=== PATIENT | male | born 1970 | race Caucasian/White ===

== ENCOUNTER 2017-07-08 08:22 | Emergency (ER) | payer OTHER ==
[2017-07-08 08:31] VITALS: BP 153/90; PULSE 88; TEMP 98.6; BMI 30.1
[2017-07-08] MEDS ORDERED: KETOROLAC TROMETHAMINE 60 MG/2 ML VIAL IM ONE (08:52)
[2017-07-08] MEDS ORDERED: CYCLOBENZAPRINE HCL 10 MG TABLET (FP) PO ONE (08:52)
--- NOTE | 2017-07-08 08:52 | PDOC ---
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 Eighth pain is primarily under his left axilla and has radiating numbness to his finger. pain is also primarily at his left upper trapezius musculature. Denies shortness of breath, chest pain or palpitations, no breathing problems, has never had any cardiac issues and is followed regularly due to his hypertension, hypercholesterolemia, and diabetes. had a recent 40 pound weight loss but no Hx of cardiac disease. 07/08/17 09:00 Occurred: reports: yesterday Severity: reports: mild, moderate Pain Location: reports: upper extremity (left shoulder and neck) Modifying Factors: improves with: None Associated Symptoms (Fall): denies symptoms Past History - Travel Traveled outside of the country in the last 30 days: Yes Close contact w/someone who was outside of country & ill: Yes - Past Medical History Allergies/Adverse Reactions: Allergies Allergy/AdvReac Type Severity Reaction Status Date / Time No Known Allergies Allergy Verified 07/08/17 08:36 Home Medications: Ambulatory Orders Amlodipine Besylate [Norvasc -] 5 mg PO DAILY 07/23/15 Atorvastatin Ca [Lipitor -] 5 mg PO HS 07/23/15 Metformin HCl [Glucophage] 1,000 mg PO BID 07/23/15 Sitagliptin Phosphate [Januvia] 25 mg PO DAILY 07/23/15 Cyclobenzaprine HCl [Flexeril 10 mg] 10 mg PO BID PRN #14 tablet 07/08/17 Diabetes: Yes - Suicide/Smoking/Psychosocial Hx Smoking History: Never smoked Have you smoked in the past 12 months: No Number of Cigarettes Smoked Daily: 0 Information on smoking cessation initiated: No Hx Alcohol Use: No Drug/Substance Use Hx: No Substance Use Type: None Trauma Specific PMHX - Complaint Specific PMHX Back Injury: No Neck Injury: No Review of Systems - Review of Systems Able to Perform ROS?: Yes Is the patient limited Yakut proficient: Yes Constitutional: Yes: Symptoms Reported, See HPI, Malaise HEENTM: No: Symptoms Reported Respiratory: Yes: See HPI. No: Symptoms reported Musculoskeletal: Yes: Symptoms Reported, See HPI, Back Pain, Joint Pain, Neck Pain Integumentary: Yes: See HPI. No: Symptoms Reported, Bruising, Rash Neurological: Yes: Symptoms reported, See HPI, Numbness (intermittent numbness to his left hand). No: Headache All Other Systems: Reviewed and Negative *Physical Exam - Vital Signs Last Vital Signs Temp Pulse Resp BP Pulse Ox 98.6 F 88 18 153/90 100 07/08/17 08:27 07/08/17 08:27 07/08/17 08:27 07/08/17 08:27 07/08/17 08:27 - Physical Exam General Appearance: Yes: Nourished, Appropriately Dressed HEENT: positive: KIRK, Normal ENT Inspection, Normal Voice, TMs Normal, Pharynx Normal Neck: positive: Tender. negative: Supple (patient has limited range of motion secondary to tension to the left paravertebral spinous musculature and upper trapezius of his left neck. With pressure pain is reproduced with some numbness that extends down his left hand) Respiratory/Chest: positive: Lungs Clear, Normal Breath Sounds Cardiovascular: positive: Regular Rhythm, Regular Rate Gastrointestinal/Abdominal: positive: Normal Bowel Sounds, Soft. negative: Tender Musculoskeletal: positive: Normal Inspection. negative: CVA Tenderness Extremity: positive: Normal Capillary Refill, Normal Inspection, Normal Range of Motion (supinate, and pronate without tenderness reproduced and upper arm from wrist and hand, strong flexion and extension and strength is good with resistance. Patient is able to abduct past 90 forward flex past 90 without reproduce tenderness to shoulder and against resistance. No winging. Has no clavicle or scapular tenderness. States pain is primarily under his left arm upper arm and axilla and in his left shoulder musculature) Integumentary: positive: Normal Color, Dry, Warm Neurologic: positive: french translator II-XII NML intact, Fully Oriented, Alert, Normal Mood/ Affect, Normal Response, Motor Strength 5/5 Heart Score/ECG Review - Electrocardiogram EKG: Normal - ECG Intrepretation Rhythm: Regular Rhythm - ST and T Non Specific ST-T Wave changes: No - ECG Impressions Normal ECG: Yes Progress Note - Progress Note Progress Note: Left shoulder strain, will treat with NSAIDs and cyclobenzaprine *DC/Admit/Observation/Transfer Diagnosis at time of Disposition: Cervical strain, acute Qualifiers: Encounter type: initial encounter Qualified Code(s): S16.1XXA - Strain of muscle, fascia and tendon at neck level, initial encounter; S16.1XXA - Strain of muscle, fascia and tendon at neck level, initial encounter Strain of right shoulder Qualifiers: Encounter type: initial encounter Qualified Code(s): S46.911A - Strain of unspecified muscle, fascia and tendon at shoulder and upper arm level, right arm , initial encounter; S46.911A - Strain of unspecified muscle, fascia and tendon at shoulder and upper arm level, right arm, initial encounter - Discharge Dispostion Disposition: HOME Condition at time of disposition: Stable Admit: No - Patient Instructions Printed Discharge Instructions: DI for Shoulder Sprain Additional Instructions: Rest, no heavy lifting or exercise until pain is resolved Hot soaks to neck and low back as often as possible/hot showers or Jacuzzis No massage or therapy until spasm is gone Continue ibuprofen 2-200 mg tablets every 6 hours for the next 3 days then as needed for pain and swelling Cyclobenzaprine 1-10mg every 8 hours as needed for spasm If not significant improvement within 24 hours with medication and rest regime, followup with private physician for change in medications and /or therapy. Follow-up with orthopedist this week further evaluation and necessary testing - Post Discharge Activity Forms/Work/School Notes: Back to Work
[2017-07-08] MEDS ORDERED: KETOROLAC TROMETHAMINE 60 MG/2 ML VIAL ONE (08:57)
[2017-07-08] MEDS ORDERED: CYCLOBENZAPRINE HCL 10 MG TABLET (FP) ONE (08:58)
== END 2017-07-08 09:25 | disposition home or self-care (01) ==
LOC: JERFT 08:22
PROC: 3E0133Z Introduction of Anti-inflammatory into Subcutaneous Tissue, Percutaneous Approach (ICD-10-PCS; principal; 2017-07-08)
DX: S16.1XXA Strain of muscle, fascia and tendon at neck level, initial encounter (principal); S46.912A Strain of unspecified muscle, fascia and tendon at shoulder and upper arm level, left arm, initial encounter; X50.0XXA Overexertion from strenuous movement or load, initial encounter; Y93.89 Activity, other specified; Y92.89 Other specified places as the place of occurrence of the external cause; Y99.0 Civilian activity done for income or pay; I10 Essential (primary) hypertension; E78.00 Pure hypercholesterolemia, unspecified; E11.9 Type 2 diabetes mellitus without complications; Z79.84 Long term (current) use of oral hypoglycemic drugs
CPT/HCPCS: 99281-25

== ENCOUNTER 2023-07-22 10:12 | Inpatient (IN) | payer BC, OTHER ==
[2023-07-22] MEDS ORDERED: ACETAMINOPHEN 1000 MG/100 ML BAG IVPB ONE (11:51)
[2023-07-22] MEDS ORDERED: SODIUM CHLORIDE 0.9% 500 ML INFUS.BAG IV ONE (11:51)
[2023-07-22] MEDS ORDERED: ONDANSETRON 4 MG/2 ML VIAL IVPUSH ONE (11:51)
[2023-07-22] MEDS ORDERED: ACETAMINOPHEN INJECTION 100 ML IVPB ONE (12:06)
[2023-07-22] MEDS ORDERED: ONDANSETRON 4 MG/2 ML VIAL ONE (12:06)
[2023-07-22 12:21] LABS: BASO % 0.3 % (0-2.0); EOS % 0.2 % (0-4.5); HEMATOCRIT 42.6 % (35.4-49); HEMOGLOBIN 14.4 GM/dL (11.7-16.9); LYMPH % 6.9 % (8-40); MCH 31.2 pg (25.7-33.7); MCHC 33.7 g/dl (32.0-35.9); MEAN CELL VOLUME 92.6 fl (80-96); MEAN PLT VOLUME 7.3 fl (7.5-11.1); MONO % 2.7 % (3.8-10.2); NEUT % 89.9 % (42.8-82.8); PLATELET COUNT 216 10^3/uL (134-434); RDW 13.8 % (11.9-15.9); WHITE BLOOD COUNT 12.3 K/mm3 (4.0-10.0)
[2023-07-22 12:28] LABS: INR 0.94 (0.83-1.09); PROTHROMBIN TIME (PATIENT) 10.9 SEC (9.7-13.0)
[2023-07-22 12:31] LABS: ACTIVATED PTT 30.3 SECONDS (25.2-36.5)
[2023-07-22 12:49] LABS: POTASSIUM 4.3 mmol/L (3.5-5.1)
[2023-07-22 12:52] LABS: BLOOD UREA NITROGEN 19.2 mg/dL (7-18); CALCIUM 9.2 mg/dL (8.5-10.1); MAGNESIUM 1.6 mg/dL (1.8-2.4)
[2023-07-22 12:57] LABS: BILIRUBIN,TOTAL 0.8 mg/dL (0.2-1); TOT PROT 7.4 g/dl (6.4-8.2)
[2023-07-22] MEDS ORDERED: PIPERACILLIN/TAZOB 4.5 GM 4.5 GM in DEXTROSE 5%-WATER 100 ML IVPB ONE (13:42)
[2023-07-22] MEDS ORDERED: MAGNESIUM 1GM/D5W - 1 GM/100 ML IVPB IVPB ONE (13:43)
[2023-07-22] MEDS ORDERED: PIPERACILLIN/TAZOB 4.5 GM 4.5 GM/100 ML BAG IVPB ONE (14:00)
[2023-07-22] MEDS ORDERED: ACETAMINOPHEN 325 MG TABLET (FP) PO PRN (14:17)
[2023-07-22] MEDS ORDERED: KETOROLAC TROMETHAMINE 15 MG/ML VIAL IVPUSH PRN (14:17)
[2023-07-22] MEDS: LACTATED RINGERS SOLUTION 1,000 ML IV SCH (14:47)
[2023-07-22] MEDS ORDERED: PIPERACILLIN/TAZOB 3.375 GM 3.375 GM in DEXTROSE 5%-WATER - 50 ML IVPB SCH (18:00)
[2023-07-22] MEDS ORDERED: ATORVASTATIN CA 10 MG TABLET (FP) PO SCH (22:00)
[2023-07-22] MEDS ORDERED: ATORVASTATIN CA 20 MG TABLET (FP) ONE (22:10)
[2023-07-22] MEDS ORDERED: PIPERACILLIN/TAZOB 3.375 GM 3.375 GM/50 ML BAG IVPB ONE (22:10)
[2023-07-22] MEDS: PIPERACILLIN/TAZOB 3.375 GM 3.375 GM in DEXTROSE 5%-WATER - 50 ML IVPB SCH (22:17)
[2023-07-23] MEDS ORDERED: PIPERACILLIN/TAZOB 3.375 GM 3.375 GM/50 ML BAG IVPB ONE ×2 (05:30→05:39)
[2023-07-23] MEDS: PIPERACILLIN/TAZOB 3.375 GM 3.375 GM in DEXTROSE 5%-WATER - 50 ML IVPB SCH ×2 (05:45→14:07)
[2023-07-23] MEDS ORDERED: amLODIPine BESYLATE 5 MG TABLET (FP) PO SCH (10:00)
[2023-07-23] MEDS ORDERED: ENOXAPARIN NA (PORCINE) 40 MG/0.4 ML DISP.SYRIN SQ SCH (10:00)
[2023-07-23 10:53] LABS: BASO % 0.5 % (0-2.0); EOS % 1.3 % (0-4.5); HEMATOCRIT 37.3 % (35.4-49); HEMOGLOBIN 13.4 GM/dL (11.7-16.9); LYMPH % 17.5 % (8-40); MCH 32.4 pg (25.7-33.7); MCHC 35.8 g/dl (32.0-35.9); MEAN CELL VOLUME 90.5 fl (80-96); MEAN PLT VOLUME 7.8 fl (7.5-11.1); MONO % 6.6 % (3.8-10.2); NEUT % 74.1 % (42.8-82.8); PLATELET COUNT 169 10^3/uL (134-434); RBC 4.12 M/mm3 (4.00-5.60); RDW 13.8 % (11.9-15.9); WHITE BLOOD COUNT 6.7 K/mm3 (4.0-10.0)
[2023-07-23 11:09] LABS: INR 1.03 (0.83-1.09); PROTHROMBIN TIME (PATIENT) 11.9 SEC (9.7-13.0)
[2023-07-23 11:11] LABS: ACTIVATED PTT 30.4 SECONDS (25.2-36.5)
[2023-07-23 11:18] LABS: POTASSIUM 4.1 mmol/L (3.5-5.1)
[2023-07-23 11:21] LABS: CALCIUM 8.8 mg/dL (8.5-10.1)
[2023-07-23 11:22] LABS: ALBUMIN 3.4 g/dl (3.4-5.0); BLOOD UREA NITROGEN 10.3 mg/dL (7-18); MAGNESIUM 1.6 mg/dL (1.8-2.4)
[2023-07-23 11:25] LABS: CREATININE 0.9 mg/dL (0.55-1.3); PHOSPHOROUS 2.9 mg/dL (2.5-4.9)
[2023-07-23 11:27] LABS: BILIRUBIN,TOTAL 0.8 mg/dL (0.2-1); TOT PROT 6.4 g/dl (6.4-8.2)
[2023-07-23] MEDS ORDERED: BUPIVACAINE HCL/PF 0.25% (2.5MG/ML) 10 ML VIAL ONE (12:16)
[2023-07-23] MEDS ORDERED: MAGNESIUM SULF 50% (8.12 MEQ/2 ML-1 GM VIAL) IVPB ONE (14:00)
[2023-07-23] MEDS ORDERED: ceFAZolin SODIUM 1 GM VIAL IVPB ONE (14:39)
[2023-07-23] MEDS ORDERED: BUPIVACAINE HCL/PF 0.25% (2.5MG/ML) 10 ML VIAL IJ ONE ×2 (14:40→15:20)
[2023-07-23] MEDS ORDERED: IOVERSOL 320 MG/ML ML IV ONE (14:40)
[2023-07-23] MEDS ORDERED: FENTANYL CITRATE/PF 50 MCG/ML VIAL ONE ×3 (14:42→17:25)
[2023-07-23] MEDS ORDERED: MIDAZOLAM HCL 2 MG/2 ML SINGLE DOSE VIAL ONE (14:43)
[2023-07-23] MEDS ORDERED: ROCURONIUM BROMIDE 50 MG/5 ML SYRINGE ONE (14:43)
[2023-07-23] MEDS ORDERED: PROPOFOL 20 ML ONE (14:43)
[2023-07-23] MEDS ORDERED: cefOXitin SODIUM 2 GM VIAL (RESTRICTED TO ID) IVPB ONE ×2 (15:03→15:05)
[2023-07-23] MEDS ORDERED: HYDROmorphone HCl 2 MG/ML VIAL ONE (15:07)
[2023-07-23] MEDS ORDERED: NEOSTIGMINE METHYLSULFATE 0.5 MG/1 ML - 10 ML MDV ONE (15:56)
[2023-07-23] MEDS ORDERED: KETOROLAC TROMETHAMINE 30 MG/1 ML VIAL ONE (15:56)
[2023-07-23] MEDS ORDERED: ONDANSETRON 4 MG/2 ML VIAL ONE (15:56)
[2023-07-23] MEDS ORDERED: GLYCOPYRROLATE 0.2 MG/1 ML VIAL ONE (15:56)
[2023-07-23] MEDS ORDERED: LABETALOL HCL 20 MG/4 ML VIAL ONE (15:56)
[2023-07-23] MEDS ORDERED: DEXAMETHASONE SOD PHOSPHATE 4 MG/1 ML VIAL ONE (15:56)
[2023-07-23] MEDS ORDERED: INSULIN SLIDING SCALE (NOVOLOG) 1 VIAL SQ SCH (16:30)
[2023-07-23] MEDS ORDERED: ONDANSETRON 4 MG/2 ML VIAL IVPUSH PRN ×2 (17:00→17:05)
[2023-07-23] MEDS ORDERED: ACETAMINOPHEN 1000 MG/100 ML BAG IVPB ONE ×2 (17:00→17:05)
[2023-07-23] MEDS ORDERED: LACTATED RINGERS SOLUTION 1,000 ML IV SCH (17:00)
[2023-07-23] MEDS ORDERED: LABETALOL HCL 5 MG/1 ML (100MG/20 ML VIAL) IVPUSH ONE ×2 (17:00→17:05)
[2023-07-23] MEDS ORDERED: ACETAMINOPHEN 325 MG TABLET (FP) PO PRN (17:05)
[2023-07-23] MEDS ORDERED: ACETAMINOPHEN INJECTION 100 ML IVPB ONE (17:16)
[2023-07-23] MEDS: LACTATED RINGERS SOLUTION 1,000 ML IV SCH ×2 (18:44→18:46)
[2023-07-23] MEDS: KETOROLAC TROMETHAMINE 15 MG/ML VIAL IVPUSH PRN (20:20)
[2023-07-23] MEDS: ATORVASTATIN CA 10 MG TABLET (FP) PO SCH (21:16)
[2023-07-24] MEDS: LACTATED RINGERS SOLUTION 1,000 ML IV SCH (01:43)
[2023-07-24] MEDS: KETOROLAC TROMETHAMINE 15 MG/ML VIAL IVPUSH PRN ×2 (02:30→10:03)
[2023-07-24] MEDS: INSULIN SLIDING SCALE (NOVOLOG) 1 VIAL SQ SCH ×3 (06:50→17:03)
[2023-07-24 07:42] LABS: BASO % 0.1 % (0-2.0); EOS % 0.2 % (0-4.5); HEMATOCRIT 33.7 % (35.4-49); HEMOGLOBIN 11.3 GM/dL (11.7-16.9); LYMPH % 13.7 % (8-40); MCH 31.2 pg (25.7-33.7); MCHC 33.6 g/dl (32.0-35.9); MEAN CELL VOLUME 92.7 fl (80-96); MEAN PLT VOLUME 7.4 fl (7.5-11.1); PLATELET COUNT 167 10^3/uL (134-434); RBC 3.63 M/mm3 (4.00-5.60); RDW 13.8 % (11.9-15.9); WHITE BLOOD COUNT 10.1 K/mm3 (4.0-10.0)
[2023-07-24 08:11] LABS: POTASSIUM 3.9 mmol/L (3.5-5.1)
[2023-07-24 08:13] LABS: CALCIUM 8.1 mg/dL (8.5-10.1)
[2023-07-24 08:14] LABS: ALBUMIN 2.9 g/dl (3.4-5.0); BLOOD UREA NITROGEN 21.4 mg/dL (7-18); MAGNESIUM 1.6 mg/dL (1.8-2.4)
[2023-07-24 08:16] LABS: PHOSPHOROUS 3.5 mg/dL (2.5-4.9)
[2023-07-24 08:18] LABS: BILIRUBIN,TOTAL 0.4 mg/dL (0.2-1); TOT PROT 5.5 g/dl (6.4-8.2)
[2023-07-24] MEDS: amLODIPine BESYLATE 5 MG TABLET (FP) PO SCH (10:04)
[2023-07-24] MEDS: ENOXAPARIN NA (PORCINE) 40 MG/0.4 ML DISP.SYRIN SQ SCH (10:04)
[2023-07-24] MEDS: VANCOMYCIN/WATER FOR INJ (PEG) 1,000 MG/200 ML BAG IVPB SCH ×2 (11:59→21:31)
[2023-07-24] MEDS ORDERED: INSULIN (NOVOLOG) ASPART 100 UNITS/ML 10ML VIAL ONE (12:16)
[2023-07-24] MEDS: ATORVASTATIN CA 10 MG TABLET (FP) PO SCH (21:31)
[2023-07-24] MEDS: KETOROLAC TROMETHAMINE 30 MG/1 ML VIAL IVPUSH PRN (23:54)
[2023-07-25] MEDS: INSULIN SLIDING SCALE (NOVOLOG) 1 VIAL SQ SCH ×2 (06:44→11:22)
[2023-07-25] MEDS: amLODIPine BESYLATE 5 MG TABLET (FP) PO SCH (09:14)
[2023-07-25] MEDS: ENOXAPARIN NA (PORCINE) 40 MG/0.4 ML DISP.SYRIN SQ SCH (09:14)
[2023-07-25] MEDS: VANCOMYCIN/WATER FOR INJ (PEG) 1,000 MG/200 ML BAG IVPB SCH (09:14)
[2023-07-25 09:42] LABS: BASO % 0.3 % (0-2.0); EOS % 1.1 % (0-4.5); HEMATOCRIT 33.6 % (35.4-49); HEMOGLOBIN 11.2 GM/dL (11.7-16.9); LYMPH % 21.9 % (8-40); MCHC 33.3 g/dl (32.0-35.9); MEAN PLT VOLUME 7.8 fl (7.5-11.1); MONO % 7.9 % (3.8-10.2); NEUT % 68.8 % (42.8-82.8); PLATELET COUNT 155 10^3/uL (134-434); RBC 3.61 M/mm3 (4.00-5.60); RDW 13.5 % (11.9-15.9); WHITE BLOOD COUNT 6.5 K/mm3 (4.0-10.0)
[2023-07-25 10:01] LABS: POTASSIUM 3.9 mmol/L (3.5-5.1)
[2023-07-25 10:03] LABS: ALBUMIN 3.1 g/dl (3.4-5.0); BLOOD UREA NITROGEN 11.2 mg/dL (7-18); CALCIUM 8.1 mg/dL (8.5-10.1); MAGNESIUM 1.6 mg/dL (1.8-2.4)
[2023-07-25 10:07] LABS: CREATININE 0.7 mg/dL (0.55-1.3)
[2023-07-25 10:08] LABS: BILIRUBIN,TOTAL 0.5 mg/dL (0.2-1); TOT PROT 5.9 g/dl (6.4-8.2)
[2023-07-25] MEDS: KETOROLAC TROMETHAMINE 30 MG/1 ML VIAL IVPUSH PRN (11:04)
[2023-07-25 13:32] VITALS: BMI 29.2
[2023-07-25 15:04] VITALS: BP 159/78; PULSE 64; RESP 16; TEMP 98.4
== END 2023-07-25 15:43 | disposition home or self-care (01) | DRG 419 ==
LOC: JER 10:12 → UNDOADMIN 13:42 → JERBED 13:42 → JASUSAT 07-23 14:36 → SUATTDRO 07-23 14:36 → J2C 07-23 16:30 → J8W 07-23 18:21 → JASUSAT 07-23 18:22 → J8W 07-24 11:14
PROVIDERS: ADMIT Internal Medicine Infectious Disease; ATTEND Nurse Practitioner Family
PROC: BF522Z0 Other Imaging of Gallbladder using Fluorescing Agent, Intraoperative (ICD-10-PCS; 2023-07-23)
PROC: 0FT44ZZ Resection of Gallbladder, Percutaneous Endoscopic Approach (ICD-10-PCS; principal; 2023-07-23 16:15)
DX: K80.00 Calculus of gallbladder with acute cholecystitis without obstruction (principal); E78.5 Hyperlipidemia, unspecified; I10 Essential (primary) hypertension; E11.9 Type 2 diabetes mellitus without complications; R10.11 Right upper quadrant pain; K83.8 Other specified diseases of biliary tract; R79.89 Other specified abnormal findings of blood chemistry
CPT/HCPCS: 0241U-QW; 36415; 76705-TC; 80053; 82962; 83690; 83735; 84100; 84484; 85025; 85610; 85730; 86850; 86900; 86901; 87040; 88304-TC; 93005; 93010; 94760; 99285-25